=== PATIENT | female | born 1945 | race Caucasian/White ===

== ENCOUNTER 2024-04-29 22:08 | Outpatient (REF) | payer BC, SELFPAY | END 2024-04-29 22:09 | disposition home or self-care (01) | LOC: NCHCN 22:08 | PROVIDERS: PCP Nurse Practitioner Family; Visit Provider Family Medicine | DX: R30.0 Dysuria (principal); R82.89 Other abnormal findings on cytological and histological examination of urine | CPT/HCPCS: 87086 ==

== ENCOUNTER 2024-07-11 10:42 | Outpatient (REF) | payer MEDICARE, SELFPAY ==
[2024-07-11 15:13] LABS: HCT 36.8 % (36.0-46.0); HGB 10.8 g/dL (11.2-15.7); MCH 23.8 pg (27.0-33.0); MCHC 29.3 % (32.0-36.0); MCV 81 fL (80-95); MPV 10.7 fL (8.0-11.0); Platelet Count 230 10^3/uL (130-400); RBC 4.53 10^6/uL (3.93-5.22); RDW 19.2 % (11.7-14.6); RDW-SD 56.4 fL; WBC 4.25 10^3/uL (4.4-10.8)
== END 2024-07-11 10:43 | disposition home or self-care (01) ==
LOC: NCHCN 10:42
PROVIDERS: PCP Nurse Practitioner Family; Visit Provider Nurse Practitioner Family
DX: F41.1 Generalized anxiety disorder
CPT/HCPCS: 85027

== ENCOUNTER 2024-08-12 12:35 | Outpatient (REF) | payer MEDICARE, SELFPAY ==
[2024-08-12 14:43] LABS: Abs Immature Grans 0.01 10^3/uL (0.0-0.06); Absolute Basophil Count 0.02 10^3/uL (0.0-0.2); Absolute Eosinophil Count 0.28 10^3/uL (0.0-0.7); Absolute Lymphocyte Count 1.01 10^3/uL (1.2-3.4); Absolute Monocyte Count 0.53 10^3/uL (0.1-0.8); Absolute Neutrophil Count 2.63 10^3/uL (1.2-6.7); Basophils % 0.4 %; Eosinophils % 6.3 %; HCT 31.2 % (36.0-46.0); HGB 9.3 g/dL (11.2-15.7); Immature Grans % 0.2 %; Lymphocytes % 22.5 %; MCH 23.8 pg (27.0-33.0); MCHC 29.8 % (32.0-36.0); MCV 80 fL (80-95); Monocytes % 11.8 %; Neutrophils % 58.8 %; Platelet Count 153 10^3/uL (130-400); RBC 3.91 10^6/uL (3.93-5.22); RDW 18.1 % (11.7-14.6); WBC 4.48 10^3/uL (4.4-10.8)
[2024-08-12 14:57] LABS: ALT 16 U/L (14-59); AST 20 U/L (15-37); Albumin 3.2 g/dL (3.4-5.0); Alkaline Phosphatase 72 U/L (46-116); Anion Gap 4.8 mmol/L (3-11); BUN 19 mg/dL (7-18); Bilirubin, Total 0.4 mg/dL (0.2-1.0); CO2 30.2 mmol/L (21.0-32.0); CREATININE 0.9 mg/dL (0.55-1.02); Calcium 9.4 mg/dL (8.5-10.1); Chloride 105 mmol/L (98-107); Estimated GFR 65.03 (mL/min/1.73m2); Glucose 97 mg/dL (74-106); Potassium 5.2 mmol/L (3.5-5.1); Sodium 140 mmol/L (136-145)
== END 2024-08-12 12:36 | disposition home or self-care (01) ==
LOC: NCHCN 12:35
PROVIDERS: PCP Nurse Practitioner Family; Visit Provider Nurse Practitioner Family
DX: K74.60 Unspecified cirrhosis of liver (principal); D64.9 Anemia, unspecified
CPT/HCPCS: 80053; 85025

== ENCOUNTER 2024-09-12 15:16 | Outpatient (REF) | payer MEDICARE, SELFPAY ==
[2024-09-12 15:33] LABS: HCT 30.7 % (36.0-46.0); HGB 9.1 g/dL (11.2-15.7); MCH 26.1 pg (27.0-33.0); MCHC 29.6 % (32.0-36.0); MCV 88 fL (80-95); MPV 10.8 fL (8.0-11.0); Platelet Count 176 10^3/uL (130-400); RBC 3.49 10^6/uL (3.93-5.22); RDW-SD 66.1 fL; WBC 4.43 10^3/uL (4.4-10.8)
[2024-09-12 15:55] LABS: RDW 20.4 % (11.7-14.6)
== END 2024-09-12 15:17 | disposition home or self-care (01) ==
LOC: NCHCN 15:16
PROVIDERS: PCP Nurse Practitioner Family; Visit Provider Nurse Practitioner Family
DX: D64.9 Anemia, unspecified (principal)
CPT/HCPCS: 85027

== ENCOUNTER 2024-09-18 11:40 | Outpatient (REF) | payer MEDICARE, SELFPAY ==
[2024-09-18 14:27] LABS: Iron 271 ug/dL (50-170); Total Iron Binding Capacity 308 ug/dL (250-450); Transferrin Sat 88 % (15-50)
[2024-09-18 14:54] LABS: Ferritin 56 ng/mL (8-252); Folate 18.1 ng/mL (8.6-20.0); Vitamin B12 540 pg/mL (193-986)
== END 2024-09-18 11:41 | disposition home or self-care (01) ==
LOC: NCHCN 11:40
PROVIDERS: PCP Nurse Practitioner Family; Visit Provider Nurse Practitioner Family
DX: D64.9 Anemia, unspecified (principal)
CPT/HCPCS: 82607; 82728; 82746; 83540; 83550

== ENCOUNTER 2024-12-19 11:11 | Outpatient (REF) | payer MEDICARE, SELFPAY ==
[2024-12-19 15:50] LABS: HCT 29.8 % (36.0-46.0); HGB 8.9 g/dL (11.2-15.7); MCH 27.1 pg (27.0-33.0); MCHC 29.9 % (32.0-36.0); MCV 91 fL (80-95); MPV 10.6 fL (8.0-11.0); Platelet Count 160 10^3/uL (130-400); RBC 3.29 10^6/uL (3.93-5.22); RDW 15.8 % (11.7-14.6); RDW-SD 52.0 fL; WBC 4.42 10^3/uL (4.4-10.8)
[2024-12-19 16:12] LABS: ALT 14 U/L (14-59); AST 16 U/L (15-37); Albumin 3.1 g/dL (3.4-5.0); Alkaline Phosphatase 63 U/L (46-116); Anion Gap 6.4 mmol/L (3-11); BUN 21 mg/dL (7-18); Bilirubin, Total 0.3 mg/dL (0.2-1.0); CO2 27.6 mmol/L (21.0-32.0); Calcium 8.8 mg/dL (8.5-10.1); Chloride 101 mmol/L (98-107); Estimated GFR 65.03 (mL/min/1.73m2); Glucose 111 mg/dL (74-106); Potassium 5.3 mmol/L (3.5-5.1); Sodium 135 mmol/L (136-145); Total Protein 6.4 g/dL (6.4-8.2)
== END 2024-12-19 11:12 | disposition home or self-care (01) ==
LOC: NCHCN 11:11
PROVIDERS: PCP Nurse Practitioner Family; Visit Provider Nurse Practitioner Family
DX: K92.89 Other specified diseases of the digestive system (principal); I50.9 Heart failure, unspecified
CPT/HCPCS: 80053; 85027

== ENCOUNTER 2025-03-11 14:25 | Outpatient (REF) | payer MEDICARE, SELFPAY ==
[2025-03-11 16:33] LABS: Anion Gap 6.9 mmol/L (3-11); BUN 28 mg/dL (9-23); CO2 30.1 mmol/L (20.0-31.0); Calcium 9.7 mg/dL (8.3-10.6); Chloride 104 mmol/L (98-107); Glucose 87 mg/dL (74-106); Potassium 5.8 mmol/L (3.5-5.1); Sodium 141 mmol/L (136-145)
[2025-03-11 16:38] LABS: HCT 29.5 % (36.0-46.0); HGB 8.4 g/dL (11.2-15.7); MCH 23.5 pg (27.0-33.0); MCHC 28.5 % (32.0-36.0); MCV 83 fL (80-95); MPV 11.3 fL (8.0-11.0); Platelet Count 149 10^3/uL (130-400); RBC 3.57 10^6/uL (3.93-5.22); RDW 18.8 % (11.7-14.6); RDW-SD 57.0 fL; WBC 4.58 10^3/uL (4.4-10.8)
== END 2025-03-11 14:26 | disposition home or self-care (01) ==
LOC: NCHCN 14:25
PROVIDERS: PCP Nurse Practitioner Family; Visit Provider Nurse Practitioner Family
DX: K92.2 Gastrointestinal hemorrhage, unspecified (principal)
CPT/HCPCS: 80048; 85027